=== PATIENT | female | born 1975 | race Caucasian/White ===

== ENCOUNTER 2017-12-06 03:29 | Emergency (ER) | payer MEDICAID ==
[2017-12-06] MEDS: DEXAMETHASONE 10 MG/ML 1 ML INJ IM (04:19)
[2017-12-06] MEDS: IPRATROPIUM (NEB) 0.5 MG/2.5 ML AMP HHN (04:29)
[2017-12-06] MEDS: ALBUTEROL 0.083% (NEB) 2.5 MG/3 ML AMP HHN (04:29)
== END 2017-12-06 05:14 | disposition home or self-care (01) ==
LOC: FTE 03:29
DX: J40 Bronchitis, not specified as acute or chronic (principal); I10 Essential (primary) hypertension; F17.210 Nicotine dependence, cigarettes, uncomplicated
CPT/HCPCS: 94664; 96372; 99284-25